=== PATIENT | female | born 1980 | race Caucasian/White ===

== ENCOUNTER 2017-03-05 11:03 | Emergency (ER) | payer OTHER ==
[2017-03-05 11:51] VITALS: TEMP 98.3
--- NOTE | 2017-03-05 12:50 | C.PDOC ---
History Of Present Illness 36 y/o female presents to ED, who is 7 months , c/o right leg/buttock pain radiating down the right leg for 1 week. Denies any numbness or tingling, no saddle anesthesia, urinary symptoms, vaginal bleeding or discharge, abdominal pain, chest pain, SOB, or other associated symptoms. pt feels baby kicking. no trauma. denies leg swelling. Time Seen by Provider: 03/05/17 12:18 Chief Complaint (Nursing): Lower Extremity Problem/Injury History Per: Patient History/Exam Limitations: no limitations Onset/Duration Of Symptoms: Days Current Symptoms Are (Timing): Still Present Recent travel outside of the [place]: No Past Medical History Reviewed: Historical Data, Nursing Documentation, Vital Signs Vital Signs: Last Vital Signs Temp 98.3 F 03/05/17 11:45 Pulse 78 03/05/17 13:06 Resp 18 03/05/17 13:06 BP 110/65 03/05/17 13:06 Pulse Ox 99 03/06/17 13:29 - Medical History PMH: No Chronic Diseases Family History: States: Unknown Family Hx - Social History Hx Alcohol Use: No Hx Substance Use: No - Immunization History Hx Tetanus Toxoid Vaccination: No Hx Influenza Vaccination: No Hx Pneumococcal Vaccination: No Review Of Systems Except As Marked, All Systems Reviewed And Found Negative. Constitutional: Negative for: Fever, Chills Respiratory: Negative for: Cough Gastrointestinal: Negative for: Nausea, Vomiting, Abdominal Pain Musculoskeletal: Positive for: Leg Pain (right, buttock) Skin: Negative for: Rash Neurological: Negative for: Weakness, Numbness Physical Exam - Physical Exam Appears: Non-toxic, No Acute Distress Skin: Normal Color, Warm, Dry Head: Atraumatic, Normacephalic Neck: Normal ROM Chest: Symmetrical Cardiovascular: Rhythm Regular Respiratory: Normal Breath Sounds, No Rales, No Rhonchi, No Wheezing Gastrointestinal/Abdominal: Soft, No Tenderness, No Guarding, No Rebound, Other (gravid ) Back: Normal Inspection, No CVA Tenderness, No Vertebral Tenderness Extremity: Normal ROM, Tenderness (right sciatic notch), No Pedal Edema, No Calf Tenderness, Capillary Refill (< 2 sec. ) Extremity: Bilateral: Atraumatic, Normal Color And Temperature, Normal ROM Pulses: Left Dorsalis Pedis: Normal, Right Dorsalis Pedis: Normal Neurological/Psych: Oriented x3, Normal Speech, Normal Cognition, Normal Motor, Normal Sensation Gait: Steady ED Course And Treatment O2 Sat by Pulse Oximetry: 99 (RA) Pulse Ox Interpretation: Normal Medical Decision Making Medical Decision Making: Treated with Tylenol in ED. Patient reports improvement of pain and is ambulatory. Advised follow up with PMD within 1-2 days for further evaluation. Disposition Counseled Patient/Family Regarding: Diagnosis, Need For Followup, Rx Given - Disposition Disposition: HOME/ ROUTINE Disposition Time: 13:09 Condition: GOOD Additional Instructions: [place] la medicacin segn lo prescrito. Siga con wheat gineclogo la prxima semana segn lo programado. Regrese a ER para cualquier empeoramiento de los sntomas. Prescriptions: Acetaminophen [Tylenol 325mg tab] 650 mg PO Q6 #50 tab Instructions: Sciatica (ED) Forms: Gen Discharge Inst Czech Print Language: TRINIDADIAN - Clinical Impression Clinical Impression: Sciatica of right side - PA / [employer] OPERATOR / Resident Statement MD/DO has reviewed & agrees with the documentation as recorded. - Scribe Statement The provider has reviewed the documentation as recorded by the Scribe Beau Lizarraga All medical record entries made by the Cruz were at my direction and personally dictated by me. I have reviewed the chart and agree that the record accurately reflects my personal performance of the history, physical exam, medical decision making, and the department course for this patient. I have also personally directed, reviewed, and agree with the discharge instructions and disposition.
[2017-03-05 13:07] VITALS: BP 110/65; PULSE 78; RESP 18
[2017-03-05 13:11] VITALS: O2SAT 99
== END 2017-03-05 13:15 | disposition home or self-care (01) ==
LOC: MERGE 11:03 → C.ER 11:03
DX: M54.31 Sciatica, right side (principal)

== ENCOUNTER 2017-04-10 11:06 | Emergency (ER) | payer OTHER ==
[2017-04-10 11:43] VITALS: BMI 34.6
[2017-04-10] MEDS ORDERED: Lactated Ringer's 1,000 ML IV SCH (11:45)
[2017-04-10 12:21] LABS: MEAN CELL VOLUME 91.8 fL (81.0-99.0); MEAN CORPUSCULAR HEMOGLOBIN 31.7 pg (27.0-31.0); MEAN CORPUSCULAR HGB CONC 34.5 g/dL (33.0-37.0); MEAN PLATELET VOLUME 7.4 fL (7.2-11.7); RBC 3.77 Mil/uL (3.80-5.20); RED CELL DISTRIBUTION WIDTH 14.3 % (11.5-14.5); WHITE BLOOD COUNT 9.5 K/uL (4.8-10.8)
[2017-04-10 12:29] LABS: ALBUMIN 3.3 g/dL (3.5-5.0)
[2017-04-10 12:31] LABS: GFR AFRICAN-AMERICAN > 60; GFR NON-AFRICAN AMERICAN > 60
[2017-04-10 12:32] LABS: ALT/SGPT 17 U/L (9-52); AST/SGOT 20 U/L (14-36); BLOOD UREA NITROGEN 8 mg/dL (7-17); CALCIUM 8.7 mg/dl (8.6-10.4)
[2017-04-10 14:14] LABS: SQUAMOUS EPITHIAL 4 /hpf (0-5); URINE BACTERIA OCC (<OCC); URINE BILIRUBIN NEGATIVE (NEGATIVE); URINE BLOOD NEGATIVE (NEGATIVE); URINE CALCIUM OXALATE CRYSTALS FEW /hpf (<OCC); URINE CLARITY Hazy (Clear); URINE COLOR Yellow (YELLOW); URINE GLUCOSE (UA) 1+ mg/dL (Normal); URINE LEUKOCYTE ESTERASE NEG Leu/uL (Negative); URINE NITRATE NEGATIVE (NEGATIVE); URINE PROTEIN NEGATIVE (NEGATIVE); URINE UROBILINOGEN NORMAL mg/dL (0.2-1.0)
== END 2017-04-10 16:19 | disposition home or self-care (01) ==
LOC: C.EROB 11:06
DX: O26.893 Other specified pregnancy related conditions, third trimester (principal); Z3A.34 34 weeks gestation of pregnancy
CPT/HCPCS: 80053; 81001; 82948; 85027; 99283; J3105; J7120

== ENCOUNTER 2017-05-23 14:28 | Emergency (ER) | payer OTHER ==
[2017-04-11 10:52] VITALS: BMI 34.6
--- NOTE | 2017-05-23 14:43 | OBHP ---
Datetime: 04/10/2017 14:40 IP Adm Impression: , intrauterine ; No Active Labor IP Chief Complaint Other: glucosuria IP Adm Impression Other: contractions; glucosuria IP Admit Plan: Discharge home Admit Comment, IP Provider: chief complaint-glucousia HPI 36 y/o at 34 weeks and 1 day, sent from clinic with c/o noticing glucose in urine.As per report patient she was noted to have glucose in urine and 4+ketoens Patient states that she had plaintains with cream cheee and iced coffee She denies nausea. vomiting, headache,chest pain, shortness of breath, numbness or tingling in herbert ds and feet course AMA PMH denies PSH denies OBGYN HX ; NVDX2; Ectopic pregnancyx1; miscarriagex1 Social hx denies tobacco,alcohol or illiict drug use Exam see exam section A/P 36 y/o at 34.1 wga sent from clinic because of glucosuria and ketonuria.Finger tsick gluc moose 65g/dl here .Patient noted to have contractions.Cervix-1cm (internal os closed)/thick and high.ch edel cbc,cmp, ua.start iv fluids. -monitor closely 4.30 pm UA with goucosep; no ketones ; neg for nitrites and le WBC wnl Patient noted to have contractions cervix re-examined and unchanged patient given 1 shot of terb 0.25 mg sc after which the contractions stopped. Patient discharged home advised to decrease activity follow up in clinic in 2 days patient given ptl, ppro precautions Pelvic Type - PN: Adequate Extremities - PN: Normal Abdomen - PN: Normal Back - PN: Normal Lungs - PN: Normal Heart - PN: Normal Neurologic - PN: Normal General - PN: Normal Gestation - Est Wks by US: 34.1 IP Hx Assessment: The History has been Reviewed and is Current EGA AdmitDate IP: 34.1 Vital Signs Provider: Reviewed IP Chief Complaint: Other FHR Category Provider Fetus A: Category I Dilatation, Provider: 0(external os 1 cm) Effacement, Provider: thick Station, Provider: high Genitourinary Exam: Normal DTRs - PN: Normal
--- NOTE | 2017-05-23 15:10 | OBHP ---
Datetime: 05/23/2017 14:58 IP Adm Impression: Term, intrauterine ; No Active Labor IP Admit Plan: Discharge home Admit Comment, IP Provider: Chief complaint-contractions HPI 36 y/o at 40.2 wga with c/o contractions since 11 am.patient denies vaginal bleeding, or loss of fluuid.Patientw as seen on 01/09/2017 and was 1 cm dilated. She denies nausea. vomiting, headache,chest pain, shortness of breath, numbness or tingling in herbert ds and feet course AMA; GDMA2 diet controlled PMH denies PSH denies OBGYN HX ; NVDX2; Ectopic pregnancyx1; miscarriagex1 Social hx denies tobacco,alcohol or illiict drug use Exam see exam section AP 36 y/o at 40.2 wga with c/o contractionsno active labor.cervix same essentially same as ex am done on 01/09/2017.Patient GBS negative.sugar log reviewed. -patient discharge home -return when contractions becoem stronger or with bleeding, loss of fluid or any other problems Pelvic Type - PN: Adequate Extremities - PN: Normal Abdomen - PN: Normal Back - PN: Normal Lungs - PN: Normal Heart - PN: Normal Neurologic - PN: Normal General - PN: Normal Contraction Comments Provider: gilberto EGA AdmitDate IP: 40.2 Vital Signs Provider: Reviewed IP Chief Complaint: Uterine contractions FHR Category Provider Fetus A: Category I Dilatation, Provider: 1-2 Effacement, Provider: 50 Station, Provider: -3 Genitourinary Exam: Normal DTRs - PN: Normal
[2017-05-23 19:44] VITALS: BP 122/74; PULSE 71; RESP 18; TEMP 98.6; O2SAT 96
== END 2017-05-23 15:18 | disposition home or self-care (01) ==
LOC: C.EROB 14:28
DX: O75.89 Other specified complications of labor and delivery (principal); Z3A.34 34 weeks gestation of pregnancy

== ENCOUNTER 2017-05-24 09:27 | Inpatient (IN) | payer OTHER ==
--- NOTE | 2017-05-24 09:54 | OBADHP ---
Datetime: 05/24/2017 09:47 Admit Comment, IP Provider: at 40.3wweeks gdma1 came with ctxs started yesterday got worse tod ay, irrg, 05/16, no vb, lof,+fm.pt is gdma obhx 2 x pmh gdma1 med pnv all nkda psh den soch de ve /-2 a/p at 40+3weeks/gdma1 in active labor admit to l_d npo/ivf labs pain management cont randee and efm anticipate Pelvic Type - PN: Adequate Extremities - PN: Normal Abdomen - PN: Normal Back - PN: Normal Breast - PN: Normal Lungs - PN: Normal Heart - PN: Normal Thyroid - PN: Normal Neurologic - PN: Normal HEENT - PN: Normal General - PN: Normal FHR - Baseline A Provider: 130 Contraction Comments Provider: 1-5 Comments, ACOG Physical Exam: gravid,non tender ext no edema,no calf ten IP Hx Assessment: The History has been Reviewed and is Current Vital Signs Provider: Reviewed; Within Normal Limits IP Chief Complaint: Uterine contractions NICHD Variability Prov Fetus A: Moderate 6-25bpm NICHD Accel Fetus A IP Provider: 15X15 FHR Category Provider Fetus A: Category I Dilatation, Provider: 6 Effacement, Provider: 100 Station, Provider: -2 Genitourinary Exam: Normal DTRs - PN: Normal EGA AdmitDate IP: 40.3 IP Adm Impression: Term, intrauterine ; Active labor IP Admit Plan: Admit to unit; Initiate labor protocol Datetime: 04/10/2017 14:40 IP Chief Complaint Other: glucosuria IP Adm Impression Other: contractions; glucosuria Gestation - Est Wks by US: 34.1
[2017-05-24 09:57] VITALS: BMI 23.3
[2017-05-24] MEDS ORDERED: Lactated Ringer's 1,000 ML IV SCH (10:00)
[2017-05-24 10:34] LABS: BASO # 0.1 K/uL (0.0-0.2); BASO % 0.7 % (0.0-2.0); EOS % 0.3 % (0.0-4.0); HEMATOCRIT 38.7 % (34.0-47.0); LYMPH # 2.1 K/uL (1.0-4.3); MEAN CELL VOLUME 91.1 fL (81.0-99.0); MEAN CORPUSCULAR HEMOGLOBIN 31.4 pg (27.0-31.0); MEAN CORPUSCULAR HGB CONC 34.4 g/dL (33.0-37.0); MEAN PLATELET VOLUME 7.8 fL (7.2-11.7); MONO # 0.5 K/uL (0.0-0.8); MONO % 5.5 % (0.0-10.0); NRBC % 0.1 % (0.0-2.0); RED CELL DISTRIBUTION WIDTH 14.1 % (11.5-14.5); WHITE BLOOD COUNT 9.8 K/uL (4.8-10.8)
[2017-05-24 10:37] LABS: RBC URINE 1 /hpf (0-3); URINE BACTERIA RARE (<OCC); URINE BILIRUBIN NEGATIVE (NEGATIVE); URINE BLOOD 2+ (NEGATIVE); URINE COLOR Yellow (YELLOW); URINE GLUCOSE (UA) NORMAL (Normal); URINE KETONE NEGATIVE (NEGATIVE); URINE LEUKOCYTE ESTERASE NEG Leu/uL (Negative); URINE PROTEIN NEGATIVE (NEGATIVE); URINE UROBILINOGEN NORMAL mg/dL (0.2-1.0); WBC URINE 3 /hpf (0-5)
[2017-05-24 10:42] LABS: CHLORIDE 105 mmol/L (98-107); POTASSIUM 3.7 mmol/L (3.6-5.2); SODIUM 137 mmol/L (132-148)
[2017-05-24 10:44] LABS: BILIRUBIN,TOTAL 0.6 mg/dL (0.2-1.3); GFR AFRICAN-AMERICAN > 60
[2017-05-24] MEDS ORDERED: Lidocaine 2% Inj (20ml) ONE (10:44)
[2017-05-24 10:45] LABS: ALKALINE PHOSPHATASE 173 U/L (38-126); ALT/SGPT 33 U/L (9-52); AST/SGOT 28 U/L (14-36); BLOOD UREA NITROGEN 8 mg/dL (7-17); CARBON DIOXIDE 19 mmol/L (22-30); GLUCOSE,RANDOM 88 mg/dL (65-105); TOTAL PROTEIN 6.6 g/dL (6.3-8.3)
[2017-05-24] MEDS ORDERED: Oxycodone/Acetaminophen 5/325 mg Tab PO PRN (11:04)
[2017-05-24] MEDS ORDERED: Benzocaine/Menthol 20%-0.5% Topical Spray (60 ml) TOP PRN (11:04)
--- NOTE | 2017-05-24 11:04 | OBDS ---
DELIVERY PERSONNEL Delivery Doctor: Bright Hardycatie MORIN Scrub Nurse: Samaria Anglin OBT Reports Analysis Manager: Nathalie Akbar RN MATERNAL INFORMATION Provider Comments: baby deliverd in jamar. end clean no com 9/9 peads prsemt due to meconium cord gas sent LABOR SUMMARY EDC: 05/21/2017 00:00 No. Babies in Womb: 1 LABOR INFORMATION Group B Beta Strep: Negative VAGINAL DELIVERY Episiotomy: None Laceration Extension: First Degree Laceration Type: Perineal Laceration Repair Note: repsired with 2 chromic BABY A INFORMATION Infant Delivery Date/Time: 05/24/2017 10:50 Method of Delivery: Vaginal Born in Route : No : N/A Forceps: N/A Vacuum Extraction: N/A Shoulder Dystocia : No SHOULDER DYSTOCIA BABY A Delivery Date/Time: 05/24/2017 10:50 PRESENTATION/POSITION BABY A Presentation: Cephalic Cephalic Presentation: Vertex Vertex Position: Left Occipital Anterior Breech Presentation: N/A PLACENTA INFORMATION BABY A Placenta Method of Delivery: Spontaneous Placenta Status: Delivered INFORMATION BABY A Gestational Age at Delivery: 40.3 Gestational Status: Term Infant Outcome : Liveborn Condition : Stable Sex: Female IDENTIFICATION/MEDS BABY A ID Band Number: [id number] Sensor Applied: Yes Sensor Number: [id number]
[2017-05-24] MEDS ORDERED: Oxytocin 30 UNIT 30 UNITS/500 ML BAG IV SCH (11:15)
[2017-05-25 08:12] LABS: HEMATOCRIT 34.1 % (34.0-47.0); MEAN CELL VOLUME 91.7 fL (81.0-99.0); MEAN CORPUSCULAR HEMOGLOBIN 31.7 pg (27.0-31.0); MEAN CORPUSCULAR HGB CONC 34.5 g/dL (33.0-37.0); MEAN PLATELET VOLUME 7.9 fL (7.2-11.7); RED CELL DISTRIBUTION WIDTH 14.2 % (11.5-14.5)
--- NOTE | 2017-05-25 08:58 | OBPPN ---
Datetime: 05/25/2017 08:55 PP Pain Prov: Within normal limits PP Nausea Prov: Denies PP Flatus Prov: Yes PP Breasts Prov: Normal PP Heart Prov: Normal PP Lungs Prov: Normal PP Abdomen/Uterus Prov: Normal PP Lochia Prov: Normal PP Vulva/Perineum Prov: Normal PP CVA Tenderness Prov: Normal PP Extremities Prov: Normal PP C/S Incision Prov: Normal PP Progress Prov: Normal PP Comments Phys Exam Prov: Abd: Soft, NT, BS- present UT- Firm PP Impression Prov: Normal progression PP Plan Prov: Continue present management PP Progress Note Prov: s/p , Clinically Stable Plan: Continue care. Vital Signs Provider PP: Reviewed
--- NOTE | 2017-05-26 10:21 | OBPPN ---
Datetime: 05/26/2017 10:18 PP Pain Prov: Within normal limits PP Nausea Prov: Denies PP Flatus Prov: Yes PP Breasts Prov: Normal PP Heart Prov: Normal PP Lungs Prov: Normal PP Abdomen/Uterus Prov: Normal PP Lochia Prov: Normal PP Vulva/Perineum Prov: Normal PP CVA Tenderness Prov: Normal PP Extremities Prov: Normal PP Comments Phys Exam Prov: Abd: Soft, NT, BS- present UT- firm PP Impression Prov: Normal progression PP Plan Prov: Discharge PP Progress Note Prov: s/p , PPD #2 Clinically Stable. Plan: D/c Home. Vital Signs Provider PP: Reviewed
--- NOTE | 2017-05-26 10:29 | OBDCSUM ---
Datetime: 05/26/2017 10:21 Discharged to, Provider: Home Follow up at, Provider: [facility] Disch Instr Activity: Normal activity Disch Instr Diet: Regular Discharge Instructions, Provider: Routine instructions given Discharge Diagnosis, Provider: Term Delivered Discharge Time: 05/26/2017 10:21 Follow up in weeks, Provider: 6 wweks Disch Referrals: None Contraception discussed, Prov: Yes Discharge Comment, Provider: S/P uncomplicated , Clinically stable. Discharge Diagnosis Prov Other: S/P uncomplicated , Clinically stable.
[2017-05-26 15:47] VITALS: BP 104/61; PULSE 69; RESP 18; TEMP 97.1; O2SAT 96
== END 2017-05-26 15:08 | disposition home or self-care (01) | DRG 372 ==
LOC: C.EROB 09:27 → C.4D 09:52 → C.4M 14:50
PROVIDERS: ADMIT Obstetrics & Gynecology; ATTEND Obstetrics & Gynecology
PROC: 10E0XZZ Delivery of Products of Conception, External Approach (ICD-10-PCS; principal; 2017-05-24)
PROC: 0HQ9XZZ Repair Perineum Skin, External Approach (ICD-10-PCS; 2017-05-24)
DX: O24.429 Gestational diabetes mellitus in childbirth, unspecified control (principal); O77.0 Labor and delivery complicated by meconium in amniotic fluid; O70.0 First degree perineal laceration during delivery; Z3A.40 40 weeks gestation of pregnancy; Z37.0 Single live birth

== ENCOUNTER 2017-05-27 20:42 | Emergency (ER) | payer OTHER ==
[2017-05-27 20:43] VITALS: BMI 23.3
[2017-05-27 21:22] VITALS: RESP 16; O2SAT 98
--- NOTE | 2017-05-27 23:31 | C.PDOC ---
History Of Present Illness 36 year old female who presents to the ER with a complaint of right sided neck pain. Patient is 4 days ago. Denies fever, chills, weakness, or numbness. Chief Complaint (Nursing): Headache History Per: Patient History/Exam Limitations: no limitations Onset/Duration Of Symptoms: Days Current Symptoms Are (Timing): Still Present Quality: Dull, Aching Preceeding Symptoms: None Associated Symptoms: denies: Photophobia, Blurred Vision, Nausea, Vomiting, Extremity Weakness Recent travel outside of the [place]: No Past Medical History Reviewed: Historical Data, Nursing Documentation, Vital Signs Vital Signs: Last Vital Signs Temp 98.7 F 05/27/17 21:18 Pulse 58 L 05/27/17 21:18 Resp 16 05/27/17 21:18 BP 133/81 05/27/17 21:18 Pulse Ox 98 05/28/17 00:04 - Medical History PMH: No Chronic Diseases Surgical History: No Surg Hx Family History: States: Unknown Family Hx - Social History Hx Tobacco Use: No Hx Alcohol Use: No Hx Substance Use: No - Immunization History Hx Tetanus Toxoid Vaccination: No Hx Influenza Vaccination: No Hx Pneumococcal Vaccination: No Review Of Systems Constitutional: Negative for: Fever, Chills Gastrointestinal: Negative for: Nausea, Vomiting Musculoskeletal: Positive for: Neck Pain. Negative for: Back Pain Physical Exam - Physical Exam Appears: Non-toxic, Other (Alert, Conscious) Skin: Normal Color, Warm, Dry Head: Atraumatic, Normacephalic Oral Mucosa: Moist Neck: Normal ROM, No Decreased ROM, Paracervical Tenderness (Right sided) Chest: Symmetrical, No Tenderness Cardiovascular: Rhythm Regular, No Murmur Respiratory: Normal Breath Sounds, No Rales, No Rhonchi, No Wheezing Gastrointestinal/Abdominal: Soft, No Tenderness Neurological/Psych: Oriented x3, Normal Speech, Normal Cognition ED Course And Treatment O2 Sat by Pulse Oximetry: 98 (Room air) Pulse Ox Interpretation: Normal Progress Note: CT cervical spine ordered. Toradol administered. Disposition Counseled Patient/Family Regarding: Diagnosis - Disposition Referrals: [facility] at [facility] [Outside] Disposition: HOME/ ROUTINE Disposition Time: 01:39 Condition: STABLE Additional Instructions: apply waqrm compress 4X a day Prescriptions: Naproxen [Naprosyn Tab] 375 mg PO TIDPC #14 tab Instructions: Cervical Strain (GEN), Tendinitis (ED) Forms: [facility] (Gabonese), Gen Discharge Inst Armenian Print Language: KAZAKH - POA Present On Arrival: None - Clinical Impression Clinical Impression: Cervical muscle strain, Tendinitis - Scribe Statement The provider has reviewed the documentation as recorded by the Scribeloise Marion All medical record entries made by the Alvaroibeloise were at my direction and personally dictated by me. I have reviewed the chart and agree that the record accurately reflects my personal performance of the history, physical exam, medical decision making, and the department course for this patient. I have also personally directed, reviewed, and agree with the discharge instructions and disposition.
--- NOTE | 2017-05-28 01:36 | CT ---
EXAM: CT Cervical Spine Without Intravenous Contrast EXAM DATE/TIME: 05/27/2017 11:29 PM CLINICAL HISTORY: 36 years old, female; Pain; Neck pain; Additional info: Tenderness and pain TECHNIQUE: Axial computed tomography images of the cervical spine without intravenous contrast. All CT scans at this facility use one or more dose reduction techniques, viz.: automated exposure control; ma/kV adjustment per patient size (including targeted exams where dose is matched to indication; i.e. head); or iterative reconstruction technique. Coronal and sagittal reformatted images were created and reviewed. COMPARISON: There are no prior studies for comparison. FINDINGS: Vertebrae: There is maintenance of the cervical lordosis. There is no prevertebral soft tissue swelling. There are no fractures. Disc spaces are maintained .Facet joints align anatomically.Spinous processes align in the expected fashion. Discs/spinal canal/neural foramina: see above Soft tissues: See above. Nodes: There are calcified mediastinal nodes. Thyroid: There are thyroid nodules. Lung apices: Lung apices are clear IMPRESSION: No acute osseous abnormality
[2017-05-28 02:02] VITALS: BP 153/89; PULSE 48; TEMP 97.9
== END 2017-05-28 02:02 | disposition home or self-care (01) ==
LOC: C.ER 20:42
DX: S16.1XXA Strain of muscle, fascia and tendon at neck level, initial encounter (principal); X58.XXXA Exposure to other specified factors, initial encounter; Y93.9 Activity, unspecified; Y92.9 Unspecified place or not applicable; M77.9 Enthesopathy, unspecified
CPT/HCPCS: 72125; 96372; 99284; J1885

== ENCOUNTER 2017-10-30 08:47 | Emergency (ER) | payer OTHER ==
[2017-10-30 08:47] VITALS: BMI 23.3
--- NOTE | 2017-10-30 09:43 | C.PDOC ---
History Of Present Illness 36 Y/O FEMALE PRESENTS TO ED WITH LOCALIZED INTERMITTENT LLQ/PELVIC PAIN X 2 WEEKS. PATIENT REPORTS DYSURIA AND CONSTIPATION, DENIES FEVER, N/V/D OR ANY OTHER COMPLAINTS AT THIS TIME. EXAM NONTOXIC ABD +LLQ/SUPRAPUB TEND SOFT NO R/G REMAINDER NEG Time Seen by Provider: 10/30/17 09:04 Chief Complaint (Nursing): Abdominal Pain History Per: Patient History/Exam Limitations: no limitations Onset/Duration Of Symptoms: Days Current Symptoms Are (Timing): Still Present Location Of Pain/Discomfort: LLQ Past Medical History Reviewed: Historical Data, Nursing Documentation, Vital Signs Vital Signs: Last Vital Signs Temp 98.7 F 10/30/17 11:30 Pulse 61 10/30/17 11:30 Resp 18 10/30/17 11:30 BP 124/77 10/30/17 11:30 Pulse Ox 100 10/30/17 11:30 - Medical History PMH: Diabetes Surgical History: No Surg Hx - [facility] Procedures DELIVERY OF PRODUCTS OF CONCEPTION, EXTERNAL APPROACH (05/24/17) REPAIR PERINEUM SKIN, EXTERNAL APPROACH (05/24/17) Family History: States: No Known Family Hx - Social History Hx Tobacco Use: No Hx Alcohol Use: No Hx Substance Use: No - Immunization History Hx Tetanus Toxoid Vaccination: No Hx Influenza Vaccination: No Hx Pneumococcal Vaccination: No Review Of Systems Constitutional: Negative for: Fever, Chills Gastrointestinal: Positive for: Abdominal Pain, Constipation. Negative for: Nausea, Vomiting, Diarrhea Genitourinary: Positive for: Dysuria, Pelvic Pain. Negative for: Vaginal Discharge, Vaginal Bleeding Physical Exam - Physical Exam Appears: Non-toxic Skin: Warm, Dry, No Rash Head: Atraumatic, Normacephalic Oral Mucosa: Moist Neck: Normal ROM, Supple Cardiovascular: Rhythm Regular Respiratory: Normal Breath Sounds, No Rales, No Rhonchi, No Wheezing Gastrointestinal/Abdominal: Soft, Tenderness (LLQ and Suprapubic ), No Guarding , No Rebound Back: No CVA Tenderness Extremity: Normal ROM, Capillary Refill (<2 seconds) Neurological/Psych: Oriented x3 ED Course And Treatment - Laboratory Results Result Diagrams: 10/30/17 10:43 10/30/17 10:43 O2 Sat by Pulse Oximetry: 99 (RA) Pulse Ox Interpretation: Normal - CT Scan/US US Other Rad Studies (CT/US): Radiology Report Reviewed (Single intrauterine with estimated gestational age 5 weeks 4 days) Reevaluation Time: 13:28 Reassessment Condition: Improved Disposition Counseled Patient/Family Regarding: Studies Performed, Diagnosis, Need For Followup - Disposition Referrals: [facility] [Outside] [facility] [Outside] YOUR,PMD [Other] Disposition: HOME/ ROUTINE Disposition Time: 13:28 Condition: IMPROVED Instructions: Threatened Miscarriage (ED) Forms: [employer] (Armenian) Print Language: SINHALA - Clinical Impression Clinical Impression: Threatened miscarriage - Scribe Statement The provider has reviewed the documentation as recorded by the Scribeloise Abdul All medical record entries made by the Alvaroibe were at my direction and personally dictated by me. I have reviewed the chart and agree that the record accurately reflects my personal performance of the history, physical exam, medical decision making, and the department course for this patient. I have also personally directed, reviewed, and agree with the discharge instructions and disposition.
[2017-10-30 10:09] LABS: SQUAMOUS EPITHIAL 1 /hpf (0-5); URINE BILIRUBIN NEGATIVE (NEGATIVE); URINE BLOOD NEGATIVE (NEGATIVE); URINE CLARITY Clear (Clear); URINE COLOR Yellow (YELLOW); URINE GLUCOSE (UA) NORMAL (Normal); URINE LEUKOCYTE ESTERASE NEG Leu/uL (Negative); URINE NITRATE NEGATIVE (NEGATIVE); URINE PROTEIN NEGATIVE (NEGATIVE); URINE UROBILINOGEN NORMAL mg/dL (0.2-1.0)
[2017-10-30 10:49] LABS: BASO # 0.1 K/uL (0.0-0.2); EOS # 0.1 K/uL (0.0-0.7); EOS % 1.4 % (0.0-4.0); HEMOGLOBIN 14.4 g/dL (11.0-16.0); LYMPH # 1.9 K/uL (1.0-4.3); LYMPH % 27.4 % (20.0-40.0); MEAN CELL VOLUME 89.8 fL (81.0-99.0); MEAN CORPUSCULAR HEMOGLOBIN 31.9 pg (27.0-31.0); MEAN CORPUSCULAR HGB CONC 35.5 g/dL (33.0-37.0); MEAN PLATELET VOLUME 7.5 fL (7.2-11.7); MONO # 0.4 K/uL (0.0-0.8); MONO % 6.4 % (0.0-10.0); NEUT # 4.4 K/uL (1.8-7.0); NEUT % 63.8 % (50.0-75.0); NRBC % 0.2 % (0.0-2.0); RBC 4.51 Mil/uL (3.80-5.20); RED CELL DISTRIBUTION WIDTH 13.4 % (11.5-14.5); WHITE BLOOD COUNT 6.8 K/uL (4.8-10.8)
[2017-10-30 11:02] LABS: ALB/GLOB RATIO 1.3 (1.0-2.1); ALBUMIN 4.1 g/dL (3.5-5.0); ALT/SGPT 81 U/L (9-52); AST/SGOT 41 U/L (14-36); BLOOD UREA NITROGEN 8 mg/dL (7-17); CALCIUM 8.8 mg/dl (8.6-10.4); GFR AFRICAN-AMERICAN > 60; GFR NON-AFRICAN AMERICAN > 60
--- NOTE | 2017-10-30 13:18 | US ---
Indication: Left lower quadrant pain, rule out ectopic Comparison: None available. Technique: Real-time transabdominal pelvic ultrasound was performed. In addition a transvaginal pelvic ultrasound was necessary to better depict pelvic anatomy. Findings: The uterus measures approximately 11.6 x 8.0 x 7.9 cm. Anteverted. At least 2 probable intramural uterine fibroids measuring approximately 0.9 x 0.5 x 0.9 cm within the mid midline uterus and 2.5 x 2.8 x 2.3 cm within the mid left uterus. Cervix length measures approximately 3.7 cm. There is a single intrauterine fetus present. 2 mm yolk sac. The gestational sac measures 1.4 cm and is compatible with a gestational age of 5 weeks 4 days. The crown-rump length measures 0.2 cm, too small for gestational age calculation. motion was detected during the examination but difficult to document with M-mode. The right ovary measures 3.5 x 3.2 x 3.0 cm and contains a 2.5 x 2.4 x 2.4 cm septated cyst. The left ovary measures 3.1 x 2.3 x 2.8 cm. Blood flow was demonstrated to both ovaries. Impression: Single intrauterine with estimated gestational age 5 weeks 4 days by gestational sac calculation. heart motion was detected during the examination however difficult to document with M-mode. 2.5 cm right ovarian septated cyst. At least 2 probable intramural uterine fibroids measuring up to 2.8 cm as above. Advise an anomaly screen at 16-18 weeks gestational age
[2017-10-30 13:29] VITALS: O2SAT 99
[2017-10-30 13:35] VITALS: BP 110/67; PULSE 69; RESP 20; TEMP 98.2
== END 2017-10-30 13:59 | disposition home or self-care (01) ==
LOC: C.ER 08:47
DX: O20.0 Threatened abortion (principal); Z3A.01 Less than 8 weeks gestation of pregnancy

== ENCOUNTER 2018-06-10 18:00 | Inpatient (IN) | payer OTHER ==
[2018-06-10] MEDS ORDERED: Penicillin G 5 Million Unit Vial IVPB ONE ×2 (18:41→18:59)
[2018-06-10] MEDS ORDERED: Lactated Ringer's 1,000 ML IV ONE (18:41)
[2018-06-10 18:42] VITALS: BMI 33.5
[2018-06-10] MEDS ORDERED: Lactated Ringer's 1,000 ML IV SCH (18:45)
[2018-06-10 19:38] LABS: SQUAMOUS EPITHIAL 10 /hpf (0-5); URINE BACTERIA MOD (<OCC); URINE BILIRUBIN NEGATIVE (NEGATIVE); URINE BLOOD 3+ (NEGATIVE); URINE CALCIUM OXALATE CRYSTALS OCC /hpf (<OCC); URINE CLARITY Hazy (Clear); URINE COLOR Yellow (YELLOW); URINE GLUCOSE (UA) NORMAL (Normal); URINE LEUKOCYTE ESTERASE NEG Leu/uL (Negative); URINE PROTEIN NEGATIVE (NEGATIVE)
[2018-06-10 19:39] LABS: BASO % 0.2 % (0.0-2.0); EOS % 0.2 % (0.0-4.0); HEMOGLOBIN 14.3 g/dL (11.0-16.0); LYMPH # 2.4 K/uL (1.0-4.3); LYMPH % 22.7 % (20.0-40.0); MEAN CELL VOLUME 90.9 fL (81.0-99.0); MEAN CORPUSCULAR HEMOGLOBIN 31.9 pg (27.0-31.0); MEAN CORPUSCULAR HGB CONC 35.1 g/dL (33.0-37.0); MONO # 0.6 K/uL (0.0-0.8); MONO % 5.1 % (0.0-10.0); NEUT # 7.7 K/uL (1.8-7.0); NEUT % 71.8 % (50.0-75.0); NRBC % 0.2 % (0.0-2.0); RBC 4.48 Mil/uL (3.80-5.20); RED CELL DISTRIBUTION WIDTH 14.5 % (11.5-14.5); WHITE BLOOD COUNT 10.7 K/uL (4.8-10.8)
[2018-06-10 19:42] LABS: ALB/GLOB RATIO 1.3 (1.0-2.1); ALBUMIN 4.2 g/dL (3.5-5.0); ALT/SGPT 46 U/L (9-52); AST/SGOT 43 U/L (14-36); BLOOD UREA NITROGEN 6 mg/dL (7-17); CALCIUM 9.3 mg/dl (8.6-10.4); GFR NON-AFRICAN AMERICAN > 60
--- NOTE | 2018-06-10 19:54 | OBHP ---
Datetime: 06/10/2018 19:31 IP Adm Impression: Term, intrauterine ; Active labor; Intact Membranes IP Admit Plan: Admit to unit; Initiate labor protocol Admit Comment, IP Provider: Patient seen and examined approximately 1840 hours This is a private patient of Dr. Anton Hardy 37 y.o. P3023, LUBA 06/25/18, by sono 12/30/17 at 14w 5d, EGA 37w 6d, c/o Ctx, onset 1300 hours, pain scale 8/10. (+) AFM; denies LOF., VB. care: Dr. Hardy - no significant issues; AMA P OB: x 3: 2007, male, 8lb 6oz. 2010, male, 9lb 8oz. 2016, female, "almost 10lb" - all at [facility], (+)DM. 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 x 2 years; together >=10 years. Housewif e Fam Hx: Mother 65 y.o. Father alive 62 y.o., both no med issues. P.E.: as above. Obese, in pain with contractions. Awake, alert, oriented to time, person and place . Assessment: 37 y.o. P3023, 37w 6d, active labor. At time of decision for admission, GBS status un known. Category 1 tracing. Clinically stable. Plan: 1) Admit 2) NPO 3) Admission labs 4) Continuous EFM 5) Penicillin 6) Anticipate vaginal delivery - Dr. Hardy made aware Addendum: GBS negative cervical exam: , bulging membranes - Dr Hardy aware Pelvic Type - PN: Adequate Extremities - PN: Normal Abdomen - PN: Normal Back - PN: Normal Breast - PN: Not Done Lungs - PN: Normal Heart - PN: Normal Thyroid - PN: Not Done Neurologic - PN: Normal HEENT - PN: Normal General - PN: Normal Presentation-Admit: Vertex FHR - Baseline A Provider: 140 Membranes, Provider: Intact Contraction Comments Provider: 1-2 minutes Comments, ACOG Physical Exam: Abdomen: obese. Gravid. Firm with contractions. Fundal height 40 cm (i ncreased pannus) Bedside sono: cephalic All other systems reviewed and are negative Gestation - Est Wks by US: 37w 6d EGA AdmitDate IP: 37.6 Vital Signs Provider: Reviewed IP Indication for Induction: Not Applicable IP Chief Complaint: Uterine contractions NICHD Variability Prov Fetus A: Moderate 6-25bpm NICHD Accel Fetus A IP Provider: 10X10 FHR Category Provider Fetus A: Category I NICHD Decel Fetus A IP Provider: Early Dilatation, Provider: 7-8 Effacement, Provider: 90 Station, Provider: -3 Genitourinary Exam: Normal DTRs - PN: Not Done
--- NOTE | 2018-06-10 20:02 | OBADHP ---
Datetime: 06/10/2018 19:31 Admit Comment, IP Provider: Patient seen and examined approximately 1840 hours This is a private patient of Dr. Anton Hardy 37 y.o. P3023, LUBA 06/25/18, by sono 12/30/17 at 14w 5d, EGA 37w 6d, c/o Ctx, onset 1300 hours, pain scale 8/10. (+) AFM; denies LOF., VB. care: Dr. Hardy - no significant issues; AMA P OB: x 3: 2007, male, 8lb 6oz. 2010, male, 9lb 8oz. 2016, female, "almost 10lb" - all at [facility], (+)DM. 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 x 2 years; together >=10 years. Housewif e Fam Hx: Mother 65 y.o. Father alive 62 y.o., both no med issues. P.E.: as above. Obese, in pain with contractions. Awake, alert, oriented to time, person and place . Assessment: 37 y.o. P3023, 37w 6d, active labor. At time of decision for admission, GBS status un known. Category 1 tracing. Clinically stable. Plan: 1) Admit 2) NPO 3) Admission labs 4) Continuous EFM 5) Penicillin 6) Anticipate vaginal delivery - Dr. Hardy made aware Addendum: GBS negative cervical exam: , bulging membranes - Dr Hardy aware Pelvic Type - PN: Adequate Extremities - PN: Normal Abdomen - PN: Normal Back - PN: Normal Breast - PN: Not Done Lungs - PN: Normal Heart - PN: Normal Thyroid - PN: Not Done Neurologic - PN: Normal HEENT - PN: Normal General - PN: Normal Presentation-Admit: Vertex FHR - Baseline A Provider: 140 Membranes, Provider: Intact Contraction Comments Provider: 1-2 minutes Comments, ACOG Physical Exam: Abdomen: obese. Gravid. Firm with contractions. Fundal height 40 cm (i ncreased pannus) Bedside sono: cephalic All other systems reviewed and are negative Gestation - Est Wks by US: 37w 6d Vital Signs Provider: Reviewed IP Chief Complaint: Uterine contractions NICHD Variability Prov Fetus A: Moderate 6-25bpm NICHD Accel Fetus A IP Provider: 10X10 FHR Category Provider Fetus A: Category I NICHD Decel Fetus A IP Provider: Early Dilatation, Provider: 7-8 Effacement, Provider: 90 Station, Provider: -3 Genitourinary Exam: Normal DTRs - PN: Not Done EGA AdmitDate IP: 37.6 IP Adm Impression: Term, intrauterine ; Active labor; Intact Membranes IP Admit Plan: Admit to unit; Initiate labor protocol
[2018-06-10] MEDS ORDERED: Oxytocin 20 units in LR 2,000 ML IV ONE (20:05)
[2018-06-10] MEDS ORDERED: Lidocaine 2% MPF (5 ml) Inj ONE (20:07)
[2018-06-10] MEDS ORDERED: Oxycodone/Acetaminophen 5/325 mg Tab PO PRN ×2 (20:11)
[2018-06-10] MEDS ORDERED: Benzocaine/Menthol 20%-0.5% Topical Spray (60 ml) TOP PRN (20:11)
--- NOTE | 2018-06-10 20:15 | OBADHP ---
Datetime: 06/10/2018 19:31 EGA AdmitDate IP: 37.6
--- NOTE | 2018-06-10 20:15 | OBDS ---
MATERNAL INFORMATION Provider Comments: baby deliverd in jamar 9/9 end clean cord gas send LABOR SUMMARY EDC: 06/25/2018 00:00 LABOR INFORMATION Group B Beta Strep: N/A STAGES OF LABOR Stage 3 hrs: 0 Stage 3 min: 5 VAGINAL DELIVERY Episiotomy: None Laceration Extension: First Degree Laceration Type: Perineal Sponge Count Correct: Yes Sharps Count Correct: Yes BABY A INFORMATION Infant Delivery Date/Time: 06/10/2018 19:58 Method of Delivery: Vaginal Born in Route : No : N/A Forceps: N/A Vacuum Extraction: N/A Shoulder Dystocia : No SHOULDER DYSTOCIA BABY A Delivery Date/Time: 06/10/2018 19:58 PRESENTATION/POSITION BABY A Presentation: Cephalic Cephalic Presentation: Vertex Vertex Position: Left Occipital Anterior Breech Presentation: N/A PLACENTA INFORMATION BABY A Placenta Delivery Time : 06/10/2018 20:03 Placenta Method of Delivery: Spontaneous Placenta Status: Delivered SCORES BABY A Heart Rate 1 min: >100 bpm Resp Effort 1 min: Good Cry Reflex Irritability 1 min: Cough or Sneeze or Pulls Away Muscle Tone 1 min: Active Motion Color 1 min: Body [place], Extremities Blue SCORE 1 MIN: 9 Heart Rate 5 min: >100 bpm Resp Effort 5 min: Good Cry Reflex Irritability 5 min: Cough or Sneeze or Pulls Away Muscle Tone 5 min: Active Motion Color 5 min: Body [place], Extremities Blue SCORE 5 MIN: 9 INFANT INFORMATION BABY A Gestational Age at Delivery: 37.6 Gestational Status: Term Infant Outcome : Liveborn Condition : Stable Sex: Female IDENTIFICATION/MEDS BABY A ID Band Number: [id number] ID Band Location: Left Leg; Left Arm Sensor Applied: Yes Sensor Number: [id number] Sensor Location : Cord Clamp Vitamin K Given : Not Given Erythromycin Given: Not Given WEIGHT/LENGTH BABY A Infant Birthweight (gms): 3735 Infant Weight (lb): 8 Weight (oz): 4 Infant Length Inches: 19.50 Infant Length cms: 49.5 CORD INFORMATION BABY A No. 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
--- NOTE | 2018-06-10 20:16 | OBPN ---
Datetime: 06/10/2018 20:15 IP Progress Impression: Normal progression of labor IP Procedures: Sterile Vag Exam IP Progress Plan: Continue present management IP Progress Note Comment: pt was sen at bed side ve fd/100/0 arom clean anticipate Dilatation, Provider: 10 Effacement, Provider: 100 Station, Provider: 0 Datetime: 06/10/2018 19:31 Membranes, Provider: Intact Contraction Comments Provider: 1-2 minutes FHR - Baseline A Provider: 140 Gestation - Est Wks by US: 37w 6d Presentation-Admit: Vertex Vital Signs Provider: Reviewed NICHD Accel Fetus A IP Provider: 10X10 FHR Category Provider Fetus A: Category I NICHD Variability Prov Fetus A: Moderate 6-25bpm NICHD Decel Fetus A IP Provider: Early
--- NOTE | 2018-06-11 07:42 | OBPPN ---
Datetime: 06/11/2018 07:36 PP Pain Prov: Within normal limits PP Nausea Prov: Denies PP Flatus Prov: No PP BM Prov: No PP Breasts Prov: Normal PP Heart Prov: Normal PP Lungs Prov: Normal PP Abdomen/Uterus Prov: Normal PP Lochia Prov: Not Done PP Vulva/Perineum Prov: Not Done PP CVA Tenderness Prov: Normal PP Extremities Prov: Normal PP Impression Prov: Normal progression PP Plan Prov: Continue present management Vital Signs Provider PP: Reviewed; Within Normal Limits
[2018-06-11 08:52] LABS: BASO % 0.4 % (0.0-2.0); EOS % 0.2 % (0.0-4.0); HEMOGLOBIN 13.7 g/dL (11.0-16.0); LYMPH # 2.1 K/uL (1.0-4.3); LYMPH % 16.7 % (20.0-40.0); MEAN CELL VOLUME 92.4 fL (81.0-99.0); MEAN CORPUSCULAR HEMOGLOBIN 32.1 pg (27.0-31.0); MEAN CORPUSCULAR HGB CONC 34.7 g/dL (33.0-37.0); MEAN PLATELET VOLUME 8.1 fL (7.2-11.7); MONO # 0.7 K/uL (0.0-0.8); MONO % 5.5 % (0.0-10.0); NEUT # 9.6 K/uL (1.8-7.0); NEUT % 77.2 % (50.0-75.0); RBC 4.26 Mil/uL (3.80-5.20); RED CELL DISTRIBUTION WIDTH 14.7 % (11.5-14.5); WHITE BLOOD COUNT 12.4 K/uL (4.8-10.8)
[2018-06-12 00:06] VITALS: PULSE 62
[2018-06-12 08:52] VITALS: BP 97/55; RESP 18; TEMP 97.9; O2SAT 98
== END 2018-06-12 13:30 | disposition home or self-care (01) | DRG 373 ==
LOC: C.EROB 18:00 → C.4D 18:50 → C.4M 23:00
PROVIDERS: ADMIT Obstetrics & Gynecology; ATTEND Obstetrics & Gynecology
PROC: 10E0XZZ Delivery of Products of Conception, External Approach (ICD-10-PCS; principal; 2018-06-10)
PROC: 0HQ9XZZ Repair Perineum Skin, External Approach (ICD-10-PCS; 2018-06-10)
DX: O99.214 Obesity complicating childbirth (principal); O70.0 First degree perineal laceration during delivery; Z3A.37 37 weeks gestation of pregnancy; Z86.32 Personal history of gestational diabetes; Z37.0 Single live birth